=== PATIENT | female | born 1980 | race African-American/Black ===

== ENCOUNTER 2018-08-03 22:55 | Emergency (ER) | payer SELFPAY ==
[2018-08-04] MEDS ORDERED: Lorazepam 1 MG TAB ONE (00:21)
== END 2018-08-04 01:17 | disposition left against medical advice (07) ==
LOC: MADERS 22:55
DX: R00.2 Palpitations (principal); I25.2 Old myocardial infarction; F41.9 Anxiety disorder, unspecified; F32.9 Major depressive disorder, single episode, unspecified; M32.9 Systemic lupus erythematosus, unspecified; Z87.891 Personal history of nicotine dependence
CPT/HCPCS: 93005; 94760